=== PATIENT | female | born 1950 | race Caucasian/White ===

== ENCOUNTER 2018-10-12 04:42 | Inpatient (IN) | payer OTHER ==
[2018-10-12 05:05] LABS: ABNORMAL IP MESSAGE 1; ADD MAN DIFF? NO; BASOPHIL # 0.1 10^3/ul (0.0-0.1); BASOPHILS % 0.6 % (0.0-2.0); EOSINOPHILS # 0.2 10^3/ul (0.0-0.5); EOSINOPHILS % 1.5 % (0.0-7.0); HEMATOCRIT 45.9 % (37.0-47.0); HEMOGLOBIN 15.3 g/dl (12.0-16.0); LYMPHOCYTES # 5.7 10^3/ul (0.8-2.9); LYMPHOCYTES % 47.3 % (15.0-51.0); MEAN CORPUSCULAR HEMOGLOBIN 30.1 pg (29.0-33.0); MEAN CORPUSCULAR HGB CONC 33.3 g/dl (32.0-37.0); MEAN CORPUSCULAR VOLUME 90.2 fl (82.0-101.0); MEAN PLATELET VOLUME 10.3 fl (7.4-10.4); MONOCYTE # 0.9 10^3/ul (0.3-0.9); MONOCYTES % 7.7 % (0.0-11.0); NEUTROPHIL # 5.2 10^3/ul (1.6-7.5); NEUTROPHILS % 42.5 % (39.0-77.0); PLATELET COUNT 255 10^3/UL (140-415); RED BLOOD COUNT 5.09 10^6/ul (4.20-5.40); RED CELL DISTRIBUTION WIDTH 13.1 % (11.5-14.5)
[2018-10-12 05:05] LABS: WHITE BLOOD COUNT 12.1 10^3/ul (4.8-10.8)
[2018-10-12] MEDS ORDERED: AMIODARONE 150 MG INJ (05:11)
[2018-10-12 05:12] LABS: POSITIVE DIFF @See below
[2018-10-12] MEDS: AMIODARONE 200 ML IV (05:17)
[2018-10-12] MEDS ORDERED: ONDANSETRON 4 MG INJ (05:19)
[2018-10-12] MEDS: HEPARIN 1000 UNITS/ML 10 ML INJ IV (05:20)
[2018-10-12 05:22] LABS: ANION GAP 11 (5-13); BLOOD UREA NITROGEN 20 mg/dl (7-20); CALCIUM 9.8 mg/dl (8.4-10.2); CARBON DIOXIDE 26 mmol/L (21-31); CHLORIDE 106 mmol/L (97-110); CREATININE 0.78 mg/dl (0.44-1.00); Estimated GFR > 60 mL/min (>60); GLUCOSE 186 mg/dl (70-220); POTASSIUM 3.9 mmol/L (3.5-5.1); SODIUM 143 mmol/L (135-144)
[2018-10-12 05:26] LABS: INR 0.92; PROTIME 12.5 Sec (11.9-14.9)
[2018-10-12 05:27] LABS: PARTIAL THROMBOPLASTIN TIME 25.5 Sec (23.0-35.0)
[2018-10-12] MEDS ORDERED: SODIUM CHLORIDE 0.9% 50 ML BAG (05:30)
[2018-10-12] MEDS ORDERED: ASPIRIN 81 MG TAB (05:30)
[2018-10-12] MEDS ORDERED: HEPARIN 5,000 UNIT/1 ML VIAL (05:30)
[2018-10-12 05:34] LABS: TROPONIN-I 0.048 ng/ml (0.000-0.120)
[2018-10-12] MEDS ORDERED: LIDOCAINE 1% (MDV) 20 ML INJ (05:49)
[2018-10-12] MEDS ORDERED: IODIXANOL LOCM 100 ML BTL (05:49)
[2018-10-12] MEDS ORDERED: MIDAZOLAM 1 MG/ML 2 ML INJ (05:49)
[2018-10-12] MEDS ORDERED: FENTAnyl 50 MCG/ML VIAL (05:49)
[2018-10-12] MEDS ORDERED: IOHEXOL 350MG/ML 50 ML BTL (05:49)
[2018-10-12] MEDS ORDERED: SOD CHLORIDE 0.9% 500 ML (06:31)
[2018-10-12] MEDS ORDERED: FUROSEMIDE 40 MG INJ (06:31)
[2018-10-12] MEDS ORDERED: ROCURONIUM 50 MG INJ (06:52)
[2018-10-12] MEDS ORDERED: ETOMIDATE 20 MG INJ (06:52)
[2018-10-12] MEDS ORDERED: EPTIFIBATIDE 100 ML IV (06:53)
[2018-10-12] MEDS ORDERED: DOPamine-D5W 1.6 MG/ML 250 ML (06:53)
[2018-10-12] MEDS ORDERED: EPTIFIBATIDE 10 ML ×2 (06:53→08:19)
[2018-10-12] MEDS ORDERED: morphine 4 MG/ML VIAL (07:54)
[2018-10-12] MEDS: PROPOFOL 100 ML IV ×2 (08:08→20:00)
[2018-10-12] MEDS: morphine 4 MG/ML VIAL IV (08:09)
[2018-10-12] MEDS ORDERED: CANGRELOR TETRASODIUM/ NS 250 50 MG (08:19)
[2018-10-12] MEDS: TICAGRELOR 90 MG TABLET PO ×2 (08:55→21:29)
[2018-10-12] MEDS: NORepinephrine 8MG/250 ML (PMX 250 ML IV ×3 (08:58→16:12)
[2018-10-12] MEDS: EPTIFIBATIDE 100 ML IV (09:20)
[2018-10-12] MEDS ORDERED: NORepinephrine 8MG/250 ML (PMX 250 ML IV (10:00)
[2018-10-12] MEDS: DOPamine-D5W 1.6 MG/ML 250 ML IV ×2 (10:11→14:07)
[2018-10-12 11:12] LABS: ADD MAN DIFF? NO
[2018-10-12] MEDS ORDERED: AMIODARONE 200 ML IV (11:15)
[2018-10-12 11:18] LABS: WHITE BLOOD COUNT 18.3 10^3/ul (4.8-10.8)
[2018-10-12 11:18] LABS: ABNORMAL IP MESSAGE 1; BASOPHIL # 0.1 10^3/ul (0.0-0.1); BASOPHILS % 0.3 % (0.0-2.0); HEMOGLOBIN 14.7 g/dl (12.0-16.0); LYMPHOCYTES # 1.3 10^3/ul (0.8-2.9); LYMPHOCYTES % 6.9 % (15.0-51.0); MEAN CORPUSCULAR HEMOGLOBIN 29.3 pg (29.0-33.0); MEAN CORPUSCULAR VOLUME 91.8 fl (82.0-101.0); MEAN PLATELET VOLUME 10.6 fl (7.4-10.4); MONOCYTE # 1.8 10^3/ul (0.3-0.9); MONOCYTES % 9.8 % (0.0-11.0); PLATELET COUNT 287 10^3/UL (140-415); RED BLOOD COUNT 5.01 10^6/ul (4.20-5.40); RED CELL DISTRIBUTION WIDTH 13.2 % (11.5-14.5)
[2018-10-12 11:19] LABS: POSITIVE DIFF @See below
[2018-10-12 11:46] LABS: CREATINE KINASE 2797 IU/L (23-200)
[2018-10-12 11:49] LABS: CK INDEX 9.9
[2018-10-12] MEDS: PIPER-TAZO 3.375 GM IV (PMX) 100 ML IVPB ×3 (12:16→23:47)
[2018-10-12 13:51] LABS: AADO2 Arterial 303.6 mmHg (7.0-24.0); Arterial Base Excess -7.3 mmol/L (-3.0-3); Arterial Blood Gas Oxygen Sat 93.9 mmHG (95.0-98.0); Arterial COHb 0.3 % (0.0-3.0); Arterial Fraction of Oxyhgb 93.2 % (93.0-99.0); Arterial HCO3 19.6 mmol/L (22.0-26.0); Arterial MetHb 0.4 % (0.0-1.5); Arterial pCO2 44.2 mmhg (35-45); MODE VENT - AC; Site A-Line
[2018-10-12 14:15] LABS: ANION GAP 9 (5-13); BLOOD UREA NITROGEN 20 mg/dl (7-20); CALCIUM 8.8 mg/dl (8.4-10.2); CARBON DIOXIDE 22 mmol/L (21-31); CHLORIDE 109 mmol/L (97-110); CREATININE 0.79 mg/dl (0.44-1.00); Estimated GFR > 60 mL/min (>60); GLUCOSE 248 mg/dl (70-220); MAGNESIUM 1.8 mg/dl (1.7-2.5); POTASSIUM 3.6 mmol/L (3.5-5.1); SODIUM 140 mmol/L (135-144)
[2018-10-12] MEDS: SODIUM BICARBONATE (IV ADD) 100 MEQ in DEXTROSE 5%-0.45% NACL 1,000 ML IV (14:38)
[2018-10-12] MEDS: MAGNESIUM SULFATE 2 GM/50 ML 50 ML IVPB (16:30)
[2018-10-12] MEDS: POTASSIUM CHLORIDE 100 ML IVPB (16:38)
[2018-10-12 18:18] LABS: CK INDEX 8.5; CREATINE KINASE 4666 IU/L (23-200)
[2018-10-12 18:37] LABS: Arterial MetHb 0.4 % (0.0-1.5)
[2018-10-12 19:08] LABS: AADO2 Arterial 72.7 mmHg (7.0-24.0); Allen Test ACCEPTAB; Arterial Base Excess -5.6 mmol/L (-3.0-3); Arterial Blood Gas Oxygen Sat 99.4 mmHG (95.0-98.0); Arterial COHb 0.3 % (0.0-3.0); Arterial Fraction of Oxyhgb 98.7 % (93.0-99.0); Arterial HCO3 19.2 mmol/L (22.0-26.0); Arterial pCO2 35.8 mmhg (35-45); MODE TRACH COLLAR; Site Right Radial
[2018-10-12] MEDS ORDERED: ACETAMINOPHEN 650MG/20.3ML CUP NGT (19:30)
[2018-10-12 19:41] LABS: ADD MAN DIFF? NO
[2018-10-12 19:42] LABS: ABNORMAL IP MESSAGE 1; BASOPHIL # 0.1 10^3/ul (0.0-0.1); BASOPHILS % 0.2 % (0.0-2.0); HEMATOCRIT 42.4 % (37.0-47.0); HEMOGLOBIN 14.1 g/dl (12.0-16.0); LYMPHOCYTES # 1.4 10^3/ul (0.8-2.9); LYMPHOCYTES % 6.6 % (15.0-51.0); MEAN CORPUSCULAR HEMOGLOBIN 29.8 pg (29.0-33.0); MEAN CORPUSCULAR HGB CONC 33.3 g/dl (32.0-37.0); MEAN CORPUSCULAR VOLUME 89.6 fl (82.0-101.0); MEAN PLATELET VOLUME 10.1 fl (7.4-10.4); MONOCYTE # 1.5 10^3/ul (0.3-0.9); MONOCYTES % 7.3 % (0.0-11.0); NEUTROPHIL # 17.8 10^3/ul (1.6-7.5); NEUTROPHILS % 85.2 % (39.0-77.0); PLATELET COUNT 248 10^3/UL (140-415); RED BLOOD COUNT 4.73 10^6/ul (4.20-5.40); RED CELL DISTRIBUTION WIDTH 12.9 % (11.5-14.5)
[2018-10-12 19:44] LABS: POSITIVE DIFF @See below
[2018-10-12] MEDS: MIDAZOLAM (DRIP) 50 mg/50 mL 50 ML IV (20:20)
[2018-10-12] MEDS: FENTAnyl (DRIP) 1000 mcg/100mL 100 ML IV (20:21)
[2018-10-12] MEDS: ATORVASTATIN 80 MG TAB PO (21:26)
[2018-10-12] MEDS: LACTULOSE 30ML CUP NGT (21:30)
[2018-10-13] MEDS: SODIUM BICARBONATE (IV ADD) 100 MEQ in DEXTROSE 5%-0.45% NACL 1,000 ML IV (01:06)
[2018-10-13] MEDS: MIDAZOLAM (DRIP) 50 mg/50 mL 50 ML IV ×2 (04:55→20:34)
[2018-10-13 04:59] LABS: ADD MAN DIFF? NO
[2018-10-13 05:13] LABS: WHITE BLOOD COUNT 16.6 10^3/ul (4.8-10.8)
[2018-10-13 05:13] LABS: BASOPHILS % 0.2 % (0.0-2.0); HEMATOCRIT 38.9 % (37.0-47.0); HEMOGLOBIN 12.9 g/dl (12.0-16.0); LYMPHOCYTES # 1.7 10^3/ul (0.8-2.9); LYMPHOCYTES % 10.5 % (15.0-51.0); MEAN CORPUSCULAR HEMOGLOBIN 29.9 pg (29.0-33.0); MEAN CORPUSCULAR HGB CONC 33.2 g/dl (32.0-37.0); MEAN CORPUSCULAR VOLUME 90.3 fl (82.0-101.0); MEAN PLATELET VOLUME 10.7 fl (7.4-10.4); MONOCYTE # 1.3 10^3/ul (0.3-0.9); MONOCYTES % 7.6 % (0.0-11.0); NEUTROPHIL # 13.4 10^3/ul (1.6-7.5); PLATELET COUNT 221 10^3/UL (140-415); RED BLOOD COUNT 4.31 10^6/ul (4.20-5.40); RED CELL DISTRIBUTION WIDTH 13.2 % (11.5-14.5)
[2018-10-13] MEDS: PANTOPRAZOLE 40 MG INJ IV (05:28)
[2018-10-13] MEDS: PIPER-TAZO 3.375 GM IV (PMX) 100 ML IVPB ×4 (05:29→23:51)
[2018-10-13 05:40] LABS: LACTIC ACID 2.2 mmol/L (0.5-2.0)
[2018-10-13 05:43] LABS: ANION GAP 7 (5-13); BLOOD UREA NITROGEN 15 mg/dl (7-20); CALCIUM 8.4 mg/dl (8.4-10.2); CARBON DIOXIDE 27 mmol/L (21-31); CHLORIDE 103 mmol/L (97-110); CREATININE 0.75 mg/dl (0.44-1.00); Estimated GFR > 60 mL/min (>60); GLUCOSE 189 mg/dl (70-220); MAGNESIUM 2.2 mg/dl (1.7-2.5); PHOSPHORUS 3.6 mg/dl (2.5-4.9); SODIUM 137 mmol/L (135-144)
[2018-10-13] MEDS: PROPOFOL 100 ML IV ×2 (08:00→20:00)
[2018-10-13] MEDS: TICAGRELOR 90 MG TABLET PO (09:00)
[2018-10-13 09:17] LABS: AADO2 Arterial 150.2 mmHg (7.0-24.0); Arterial Base Excess 1.5 mmol/L (-3.0-3); Arterial Blood Gas Oxygen Sat 98.4 mmHG (95.0-98.0); Arterial COHb 0.2 % (0.0-3.0); Arterial Fraction of Oxyhgb 97.9 % (93.0-99.0); Arterial HCO3 25.9 mmol/L (22.0-26.0); Arterial MetHb 0.3 % (0.0-1.5); Arterial pCO2 40.1 mmhg (35-45); MODE VENT - AC; Site A-Line
[2018-10-13] MEDS: ASPIRIN 81 MG TAB NGT (09:21)
[2018-10-13] MEDS: EPTIFIBATIDE 100 ML IV (12:09)
[2018-10-13] MEDS: morphine 2 MG INJ IV (20:01)
[2018-10-13] MEDS: ATORVASTATIN 80 MG TAB PO (20:54)
[2018-10-14 05:03] LABS: AADO2 Arterial 113.2 mmHg (7.0-24.0); Arterial Blood Gas Oxygen Sat 98.5 mmHG (95.0-98.0); Arterial COHb 0.3 % (0.0-3.0); Arterial Fraction of Oxyhgb 97.9 % (93.0-99.0); Arterial HCO3 16.3 mmol/L (22.0-26.0); Arterial MetHb 0.3 % (0.0-1.5); Arterial pCO2 22.9 mmhg (35-45); MODE VENT - AC; Site A-Line
[2018-10-14] MEDS: EPTIFIBATIDE 100 ML IV ×2 (05:15→16:07)
[2018-10-14 05:16] LABS: ADD MAN DIFF? NO
[2018-10-14 05:28] LABS: BASOPHIL # 0.1 10^3/ul (0.0-0.1); BASOPHILS % 0.4 % (0.0-2.0); EOSINOPHILS % 0.2 % (0.0-7.0); HEMATOCRIT 34.4 % (37.0-47.0); HEMOGLOBIN 11.2 g/dl (12.0-16.0); LYMPHOCYTES # 2.1 10^3/ul (0.8-2.9); LYMPHOCYTES % 18.4 % (15.0-51.0); MEAN CORPUSCULAR HEMOGLOBIN 29.7 pg (29.0-33.0); MEAN CORPUSCULAR HGB CONC 32.6 g/dl (32.0-37.0); MEAN CORPUSCULAR VOLUME 91.2 fl (82.0-101.0); MEAN PLATELET VOLUME 11.3 fl (7.4-10.4); MONOCYTE # 1.1 10^3/ul (0.3-0.9); NEUTROPHIL # 7.9 10^3/ul (1.6-7.5); NEUTROPHILS % 70.6 % (39.0-77.0); PLATELET COUNT 159 10^3/UL (140-415); RED BLOOD COUNT 3.77 10^6/ul (4.20-5.40); RED CELL DISTRIBUTION WIDTH 13.5 % (11.5-14.5)
[2018-10-14 05:28] LABS: WHITE BLOOD COUNT 11.2 10^3/ul (4.8-10.8)
[2018-10-14] MEDS: PANTOPRAZOLE 40 MG INJ IV (05:34)
[2018-10-14] MEDS: PIPER-TAZO 3.375 GM IV (PMX) 100 ML IVPB ×4 (05:34→23:39)
[2018-10-14 05:58] LABS: LACTIC ACID 1.2 mmol/L (0.5-2.0)
[2018-10-14 06:02] LABS: INR 1.17; PT RATIO 1.2
[2018-10-14 06:17] LABS: PHOSPHORUS 2.4 mg/dl (2.5-4.9)
[2018-10-14 06:17] LABS: MAGNESIUM 2.1 mg/dl (1.7-2.5)
[2018-10-14 06:20] LABS: ANION GAP 7 (5-13); BLOOD UREA NITROGEN 12 mg/dl (7-20); CALCIUM 8.2 mg/dl (8.4-10.2); CARBON DIOXIDE 27 mmol/L (21-31); CHLORIDE 106 mmol/L (97-110); Estimated GFR > 60 mL/min (>60); GLUCOSE 108 mg/dl (70-220); POTASSIUM 3.4 mmol/L (3.5-5.1); SODIUM 140 mmol/L (135-144)
[2018-10-14] MEDS: PROPOFOL 100 ML IV ×3 (08:00→22:52)
[2018-10-14] MEDS: ASPIRIN 81 MG TAB NGT (08:54)
[2018-10-14] MEDS: POTASSIUM CHLORIDE 20 MEQ POWDER FOR ORAL SOLN NGT (08:55)
[2018-10-14] MEDS: morphine 2 MG INJ IV (09:39)
[2018-10-14] MEDS: POTASSIUM PHOSPHATE 15 MM in SOD CHLORIDE 0.9% 250 ML IVPB (10:29)
[2018-10-14] MEDS: MIDAZOLAM (DRIP) 50 mg/50 mL 50 ML IV (10:30)
[2018-10-14] MEDS: FENTAnyl (DRIP) 1000 mcg/100mL 100 ML IV ×2 (10:42→23:00)
[2018-10-14] MEDS: CEFAZOLIN 2 GM/50 ML (PMX) 50 ML IVPB (11:00)
[2018-10-14] MEDS: ATORVASTATIN 80 MG TAB PO (20:48)
[2018-10-15] MEDS: morphine 2 MG INJ IV ×2 (01:13→20:38)
[2018-10-15 05:20] LABS: ADD MAN DIFF? NO
[2018-10-15] MEDS: PANTOPRAZOLE 40 MG INJ IV (05:30)
[2018-10-15] MEDS: PIPER-TAZO 3.375 GM IV (PMX) 100 ML IVPB ×2 (05:30→12:08)
[2018-10-15 05:31] LABS: WHITE BLOOD COUNT 9.6 10^3/ul (4.8-10.8)
[2018-10-15 05:31] LABS: BASOPHILS % 0.4 % (0.0-2.0); EOSINOPHILS # 0.1 10^3/ul (0.0-0.5); EOSINOPHILS % 0.8 % (0.0-7.0); HEMATOCRIT 33.7 % (37.0-47.0); LYMPHOCYTES # 1.4 10^3/ul (0.8-2.9); LYMPHOCYTES % 14.3 % (15.0-51.0); MEAN CORPUSCULAR HGB CONC 32.6 g/dl (32.0-37.0); MEAN CORPUSCULAR VOLUME 91.8 fl (82.0-101.0); MEAN PLATELET VOLUME 11.1 fl (7.4-10.4); MONOCYTE # 0.8 10^3/ul (0.3-0.9); MONOCYTES % 7.8 % (0.0-11.0); NEUTROPHIL # 7.3 10^3/ul (1.6-7.5); NEUTROPHILS % 76.2 % (39.0-77.0); PLATELET COUNT 150 10^3/UL (140-415); RED BLOOD COUNT 3.67 10^6/ul (4.20-5.40); RED CELL DISTRIBUTION WIDTH 13.9 % (11.5-14.5)
[2018-10-15 05:35] LABS: AADO2 Arterial 109.1 mmHg (7.0-24.0); Allen Test ACCEPTAB; Arterial Base Excess -3.1 mmol/L (-3.0-3); Arterial Blood Gas Oxygen Sat 97.1 mmHG (95.0-98.0); Arterial COHb 0.1 % (0.0-3.0); Arterial Fraction of Oxyhgb 96.8 % (93.0-99.0); Arterial HCO3 21.9 mmol/L (22.0-26.0); Arterial MetHb 0.2 % (0.0-1.5); Arterial pCO2 39.1 mmhg (35-45); MODE VENT - AC
[2018-10-15 05:55] LABS: LACTIC ACID 0.9 mmol/L (0.5-2.0)
[2018-10-15 05:56] LABS: ANION GAP 4 (5-13); BLOOD UREA NITROGEN 11 mg/dl (7-20); CALCIUM 8.4 mg/dl (8.4-10.2); CARBON DIOXIDE 25 mmol/L (21-31); CHLORIDE 110 mmol/L (97-110); CREATININE 0.63 mg/dl (0.44-1.00); Estimated GFR > 60 mL/min (>60); GLUCOSE 86 mg/dl (70-220); POTASSIUM 3.8 mmol/L (3.5-5.1); SODIUM 139 mmol/L (135-144)
[2018-10-15] MEDS: ASPIRIN 81 MG TAB NGT (09:28)
[2018-10-15] MEDS: PROPOFOL 100 ML IV ×2 (10:38→20:12)
[2018-10-15] MEDS: EPINEPHrine 4 MG in DEXTROSE 5% 246 ML IV ×2 (12:00→22:00)
[2018-10-15] MEDS: HEPARIN (10000 UNITS/ML) 10,000 UNIT, MILRINONE LACTATE 10 MG in SOD CHLORIDE 0.9% 1,00... SC ×2 (12:00→22:00)
[2018-10-15] MEDS: MILRINONE LACTATE 2 MG in SOD CHLORIDE 0.9% 50 ML IV (12:00)
[2018-10-15] MEDS: PHENYLephrine 20MG IN 250 ML 250 ML IV ×3 (12:00→22:00)
[2018-10-15] MEDS: INSULIN HUMAN REGULAR 100 UNIT in SOD CHLORIDE 0.9% 99 ML IVPB ×2 (12:00→22:00)
[2018-10-15] MEDS: ASPIRIN 600 MG SUPP PR ×2 (12:00→22:00)
[2018-10-15] MEDS: NORepinephrine 8MG/250 ML (PMX 250 ML IV ×2 (12:00→22:00)
[2018-10-15] MEDS: CEFAZOLIN 2 GM/50 ML (PMX) 50 ML IVPB (14:00)
[2018-10-15] MEDS ORDERED: ROCURONIUM 50 MG INJ (14:55)
[2018-10-15] MEDS ORDERED: ALBUMIN HUMAN 25% 100 ML INJ (14:55)
[2018-10-15] MEDS ORDERED: AMINOCAPROIC ACID 5 GM INJ (14:55)
[2018-10-15] MEDS ORDERED: HEPARIN 1000 UNITS/ML 10 ML INJ ×2 (14:55→14:59)
[2018-10-15] MEDS ORDERED: MIDAZOLAM 1 MG/ML 5 ML INJ (14:55)
[2018-10-15] MEDS ORDERED: PROTAMINE 250 MG INJ (14:55)
[2018-10-15] MEDS ORDERED: LIDOCAINE 2% (SDV) 5 ML INJ (14:55)
[2018-10-15] MEDS ORDERED: CA CHLORIDE 10% 10 ML SYRINGE (14:55)
[2018-10-15] MEDS ORDERED: NA BICARBONATE 8.4% 50 ML SYG (14:55)
[2018-10-15] MEDS ORDERED: PHENYLephrine (100 MCG/ML) 5ML SYG (14:55)
[2018-10-15] MEDS ORDERED: POTASSIUM CHLORIDE 40 MEQ INJ (14:55)
[2018-10-15] MEDS ORDERED: MAGNESIUM SULFATE (MG) 50% 10 ML INJ (14:55)
[2018-10-15] MEDS ORDERED: ETOMIDATE 20 MG INJ (14:55)
[2018-10-15] MEDS ORDERED: FENTAnyl 250MCG INJ (14:55)
[2018-10-15] MEDS ORDERED: CEFAZOLIN 1 GM INJ (14:55)
[2018-10-15] MEDS ORDERED: MANNITOL 20% 500 ML BAG (14:55)
[2018-10-15] MEDS ORDERED: VANCOMYCIN 1 GM INJ (14:59)
[2018-10-15] MEDS ORDERED: PAPAVERINE 60 MG INJ (14:59)
[2018-10-15] MEDS ORDERED: DOPamine-D5W 1.6 MG/ML 250 ML (15:00)
[2018-10-15] MEDS ORDERED: NITROGLYCERIN 50 MG/D5W 250 ML BTL (15:00)
[2018-10-15] MEDS: PAPAVERINE 60 MG INJ INJ (15:17)
[2018-10-15] MEDS: HEPARIN 1000 UNITS/ML 10 ML INJ IRR (15:17)
[2018-10-15] MEDS: VANCOMYCIN 1 GM INJ IRR (15:17)
[2018-10-15] MEDS ORDERED: NORepinephrine 8MG/250 ML (PMX 250 ML IV (19:00)
[2018-10-15] MEDS ORDERED: DEXTROSE 50% 50 ML SYRINGE IV ×2 (19:00)
[2018-10-15] MEDS ORDERED: DOPamine-D5W 1.6 MG/ML 250 ML IV ×2 (19:00→20:00)
[2018-10-15] MEDS: FACTOR VIIA 1 MG VIAL IV (19:00)
[2018-10-15] MEDS ORDERED: OXYCODONE/ACETAMINOPHEN (5/325) TAB PO (19:00)
[2018-10-15] MEDS: ACCU-CHEK XX ×5 (19:00→23:00)
[2018-10-15 19:31] LABS: IMMEDIATE SPIN CROSSMATCH 1
[2018-10-15] MEDS ORDERED: POTASSIUM CHLORIDE 50 ML (19:34)
[2018-10-15] MEDS ORDERED: MAGNESIUM SULFATE 2 GM/50 ML 50 ML (19:36)
[2018-10-15] MEDS ORDERED: morphine 2 MG INJ IV (20:00)
[2018-10-15] MEDS ORDERED: MIDAZOLAM 1 MG/ML 2 ML INJ IV (20:00)
[2018-10-15] MEDS: POTASSIUM CHLORIDE 50 ML IVPB (20:00)
[2018-10-15] MEDS ORDERED: EPHEDrine SULFATE 50 MG/5 ML SYG IV (20:00)
[2018-10-15] MEDS ORDERED: LORAZEPAM 2 MG INJ IV (20:00)
[2018-10-15] MEDS ORDERED: ONDANSETRON 4 MG INJ IV (20:00)
[2018-10-15] MEDS ORDERED: DIPHENHYDRAMINE 50 MG INJ IV (20:00)
[2018-10-15] MEDS ORDERED: PHENYLephrine 20MG IN 250 ML 250 ML IV (20:00)
[2018-10-15] MEDS ORDERED: NITROGLYCERIN 50 MG/D5W (PMX) 250 ML IV (20:00)
[2018-10-15] MEDS: MAGNESIUM SULFATE 2 GM/50 ML 50 ML IVPB (20:13)
[2018-10-15 20:39] LABS: ADD MAN DIFF? NO
[2018-10-15 20:41] LABS: WHITE BLOOD COUNT 17.1 10^3/ul (4.8-10.8)
[2018-10-15 20:41] LABS: ABNORMAL IP MESSAGE 1; BASOPHIL # 0.1 10^3/ul (0.0-0.1); BASOPHILS % 0.4 % (0.0-2.0); EOSINOPHILS # 0.1 10^3/ul (0.0-0.5); EOSINOPHILS % 0.6 % (0.0-7.0); HEMATOCRIT 21.7 % (37.0-47.0); HEMOGLOBIN 7.2 g/dl (12.0-16.0); LYMPHOCYTES # 2.7 10^3/ul (0.8-2.9); LYMPHOCYTES % 15.9 % (15.0-51.0); MEAN CORPUSCULAR HGB CONC 33.2 g/dl (32.0-37.0); MEAN CORPUSCULAR VOLUME 93.5 fl (82.0-101.0); MEAN PLATELET VOLUME 9.8 fl (7.4-10.4); MONOCYTE # 1.8 10^3/ul (0.3-0.9); MONOCYTES % 10.7 % (0.0-11.0); NEUTROPHIL # 11.9 10^3/ul (1.6-7.5); NEUTROPHILS % 69.5 % (39.0-77.0); NUCLEATED RED BLOOD CELLS% 0.1 /100WBC (0.0-0.0); PLATELET COUNT 114 10^3/UL (140-415); RED BLOOD COUNT 2.32 10^6/ul (4.20-5.40); RED CELL DISTRIBUTION WIDTH 13.3 % (11.5-14.5)
[2018-10-15 20:43] LABS: POSITIVE DIFF @See below
[2018-10-15 20:44] LABS: AADO2 Arterial 522.2 mmHg (7.0-24.0); Arterial Blood Gas Oxygen Sat 98.1 mmHG (95.0-98.0); Arterial COHb 0.3 % (0.0-3.0); Arterial Fraction of Oxyhgb 97.3 % (93.0-99.0); Arterial HCO3 23.9 mmol/L (22.0-26.0); Arterial MetHb 0.5 % (0.0-1.5); Arterial pCO2 40.7 mmhg (35-45); MODE VENT - AC; Site A-Line
[2018-10-15 20:59] LABS: INR 0.89; PROTIME 12.2 Sec (11.9-14.9)
[2018-10-15 21:00] LABS: PARTIAL THROMBOPLASTIN TIME 26.9 Sec (23.0-35.0)
[2018-10-15] MEDS: SOD CHLORIDE 0.9% 1,000 ML IV ×2 (21:00→22:00)
[2018-10-15] MEDS: ENOXAPARIN 40 MG/0.4 ML SYG SC (21:00)
[2018-10-15 21:06] LABS: ANION GAP 8 (5-13); BLOOD UREA NITROGEN 12 mg/dl (7-20); CARBON DIOXIDE 25 mmol/L (21-31); CHLORIDE 109 mmol/L (97-110); CREATININE 0.74 mg/dl (0.44-1.00); Estimated GFR > 60 mL/min (>60); GLUCOSE 156 mg/dl (70-220); MAGNESIUM 3.2 mg/dl (1.7-2.5); POTASSIUM 3.9 mmol/L (3.5-5.1); SODIUM 142 mmol/L (135-144)
[2018-10-15 21:08] LABS: MODE VENT - AC; MetHgb Mixed Venous 0.5 %; Mixed Venous Base Excess -0.9 mmol/L; Mixed Venous COHb 0.3 %; Mixed Venous Fraction OxyHgb 47.4 %; Mixed Venous Oxygen Sat 47.8 mmHG (65.0-75.0); Mixed Venous Total Hemglobin 8.5 g/dl; Sample Type Blood venous; Site VENOUS LINE
[2018-10-15] MEDS ORDERED: ALBUMIN HUMAN 5% 250 ML (21:15)
[2018-10-15 21:21] LABS: TYPE AND SCREEN 1
[2018-10-15] MEDS: ALBUMIN HUMAN 5% 250 ML IV ×2 (21:30→22:36)
[2018-10-15 21:40] LABS: PLATELET COUNT 116 10^3/UL (140-415)
[2018-10-15] MEDS ORDERED: FENTAnyl 50 MCG/ML VIAL (21:44)
[2018-10-15 21:59] LABS: ALBUMIN 2.7 g/dl (3.3-4.9)
[2018-10-15 21:59] LABS: INR 0.94; PROTIME 12.7 Sec (11.9-14.9)
[2018-10-15 22:00] LABS: PARTIAL THROMBOPLASTIN TIME 27.5 Sec (23.0-35.0)
[2018-10-15 22:04] LABS: THROMBIN TIME 15.3 SEC (13.8-19.1)
[2018-10-15 22:11] LABS: FIBRIN SPLIT PRODUCT >40 and <80 ug/ml (<10)
[2018-10-15 22:30] LABS: D-DIMER 6811.16 ng/ml (<460); IMMEDIATE SPIN CROSSMATCH 1
[2018-10-15 22:30] LABS: IMMEDIATE SPIN CROSSMATCH 1 7
[2018-10-16] MEDS: PROPOFOL 100 ML IV ×2 (00:30→10:49)
[2018-10-16] MEDS ORDERED: NORepinephrine 8MG/250 ML (PMX 250 ML IV (00:30)
[2018-10-16 00:48] LABS: INR 1.14; PROTIME 14.7 Sec (11.9-14.9); PT RATIO 1.1
[2018-10-16 00:49] LABS: PARTIAL THROMBOPLASTIN TIME 28.1 Sec (23.0-35.0)
[2018-10-16 00:50] LABS: ADD MAN DIFF? NO
[2018-10-16 00:52] LABS: ANION GAP 14 (5-13); BLOOD UREA NITROGEN 11 mg/dl (7-20); CALCIUM 7.3 mg/dl (8.4-10.2); CARBON DIOXIDE 19 mmol/L (21-31); CHLORIDE 110 mmol/L (97-110); CREATININE 0.74 mg/dl (0.44-1.00); Estimated GFR > 60 mL/min (>60); GLUCOSE 192 mg/dl (70-220); SODIUM 143 mmol/L (135-144)
[2018-10-16 00:52] LABS: MAGNESIUM 2.5 mg/dl (1.7-2.5)
[2018-10-16 00:54] LABS: ABNORMAL IP MESSAGE 1; BASOPHIL # 0.1 10^3/ul (0.0-0.1); BASOPHILS % 0.5 % (0.0-2.0); EOSINOPHILS % 0.1 % (0.0-7.0); HEMATOCRIT 34.6 % (37.0-47.0); HEMOGLOBIN 11.6 g/dl (12.0-16.0); LYMPHOCYTES # 0.9 10^3/ul (0.8-2.9); LYMPHOCYTES % 5.4 % (15.0-51.0); MEAN CORPUSCULAR HEMOGLOBIN 28.2 pg (29.0-33.0); MEAN CORPUSCULAR HGB CONC 33.5 g/dl (32.0-37.0); MEAN PLATELET VOLUME 10.2 fl (7.4-10.4); MONOCYTE # 1.6 10^3/ul (0.3-0.9); MONOCYTES % 9.9 % (0.0-11.0); NEUTROPHIL # 13.4 10^3/ul (1.6-7.5); NUCLEATED RED BLOOD CELLS% 0.1 /100WBC (0.0-0.0); PLATELET COUNT 92 10^3/UL (140-415); RED BLOOD COUNT 4.12 10^6/ul (4.20-5.40); RED CELL DISTRIBUTION WIDTH 18.6 % (11.5-14.5)
[2018-10-16 00:54] LABS: WHITE BLOOD COUNT 16.5 10^3/ul (4.8-10.8)
[2018-10-16] MEDS: ACCU-CHEK XX ×24 (01:00→22:59)
[2018-10-16 01:01] LABS: POSITIVE DIFF @See below
[2018-10-16 01:07] LABS: AADO2 Arterial 600.6 mmHg (7.0-24.0); Arterial Base Excess -7.1 mmol/L (-3.0-3); Arterial COHb 0.3 % (0.0-3.0); Arterial Fraction of Oxyhgb 91.4 % (93.0-99.0); Arterial HCO3 19.7 mmol/L (22.0-26.0); Arterial MetHb 0.3 % (0.0-1.5); Arterial pCO2 44.5 mmhg (35-45); MODE VENT - AC; Site A-Line
[2018-10-16 01:09] LABS: MODE VENT - AC; MetHgb Mixed Venous 0.4 %; Mixed Venous COHb 0.3 %; Mixed Venous Fraction OxyHgb 86.4 %; Mixed Venous Total Hemglobin 12.4 g/dl; Sample Type Blood venous; Site VENOUS LINE
[2018-10-16] MEDS ORDERED: NA BICARBONATE 8.4% 50 ML SYG (01:37)
[2018-10-16] MEDS: PANTOPRAZOLE IV 80 MG in SOD CHLORIDE 0.9% 100 ML IV (01:44)
[2018-10-16] MEDS: POTASSIUM CHLORIDE 40 MEQ, CALCIUM CHLORIDE 10% 1 GM in DEXTROSE 5%-0.225% NACL 1,000 ML IV ×2 (01:44→11:53)
[2018-10-16] MEDS: NA BICARBONATE 8.4% 50 ML SYG IV (01:44)
[2018-10-16] MEDS: NITROGLYCERIN 50 MG/D5W (PMX) 250 ML IV (01:55)
[2018-10-16] MEDS: MILRINONE LACTATE 2 MG in SOD CHLORIDE 0.9% 50 ML IV (01:55)
[2018-10-16] MEDS: CEFAZOLIN 1 GM/50 ML (PMX) 50 ML IVPB ×3 (02:02→18:51)
[2018-10-16] MEDS: FAMOTIDINE 20 MG INJ IV ×3 (02:02→19:47)
[2018-10-16] MEDS: POTASSIUM CHLORIDE 50 ML IVPB ×5 (02:25→21:14)
[2018-10-16] MEDS ORDERED: DEXTROSE 50% 50 ML SYRINGE IV ×2 (03:00)
[2018-10-16] MEDS: MILRINONE LACTATE 100 ML IV ×2 (03:05→11:09)
[2018-10-16] MEDS: INSULIN HUMAN REGULAR 100 UNIT in SOD CHLORIDE 0.9% 99 ML IV ×2 (03:30→18:13)
[2018-10-16] MEDS: EPINEPHrine 4 MG in SOD CHLORIDE 0.9% 246 ML IV (04:27)
[2018-10-16 05:18] LABS: ADD MAN DIFF? NO
[2018-10-16 05:23] LABS: ABNORMAL IP MESSAGE 1; BASOPHIL # 0.1 10^3/ul (0.0-0.1); BASOPHILS % 0.5 % (0.0-2.0); EOSINOPHILS % 0.1 % (0.0-7.0); HEMATOCRIT 30.8 % (37.0-47.0); HEMOGLOBIN 10.5 g/dl (12.0-16.0); LYMPHOCYTES # 0.7 10^3/ul (0.8-2.9); LYMPHOCYTES % 6.1 % (15.0-51.0); MEAN CORPUSCULAR HEMOGLOBIN 28.1 pg (29.0-33.0); MEAN CORPUSCULAR HGB CONC 34.1 g/dl (32.0-37.0); MEAN CORPUSCULAR VOLUME 82.4 fl (82.0-101.0); MEAN PLATELET VOLUME 10.9 fl (7.4-10.4); MONOCYTE # 1.3 10^3/ul (0.3-0.9); MONOCYTES % 10.8 % (0.0-11.0); NEUTROPHIL # 9.4 10^3/ul (1.6-7.5); NEUTROPHILS % 80.4 % (39.0-77.0); PLATELET COUNT 94 10^3/UL (140-415); RED BLOOD COUNT 3.74 10^6/ul (4.20-5.40); RED CELL DISTRIBUTION WIDTH 18.5 % (11.5-14.5)
[2018-10-16 05:23] LABS: WHITE BLOOD COUNT 11.7 10^3/ul (4.8-10.8)
[2018-10-16 05:30] LABS: POSITIVE DIFF @See below
[2018-10-16 05:42] LABS: PROTIME 14.3 Sec (11.9-14.9); PT RATIO 1.1
[2018-10-16 05:43] LABS: PARTIAL THROMBOPLASTIN TIME 30.2 Sec (23.0-35.0)
[2018-10-16 05:47] LABS: AADO2 Arterial 568.8 mmHg (7.0-24.0); Arterial Base Excess -1.9 mmol/L (-3.0-3); Arterial Blood Gas Oxygen Sat 97.2 mmHG (95.0-98.0); Arterial COHb 0.3 % (0.0-3.0); Arterial Fraction of Oxyhgb 96.6 % (93.0-99.0); Arterial HCO3 22.8 mmol/L (22.0-26.0); Arterial MetHb 0.3 % (0.0-1.5); Arterial pCO2 38.6 mmhg (35-45); MODE VENT - AC; Site A-Line
[2018-10-16 05:51] LABS: MODE VENT - AC; MetHgb Mixed Venous 0.6 %; Mixed Venous Base Excess -2.1 mmol/L; Mixed Venous COHb 0.2 %; Mixed Venous Fraction OxyHgb 64.7 %; Mixed Venous Oxygen Sat 65.2 mmHG (65.0-75.0); Mixed Venous Total Hemglobin 11.8 g/dl; Sample Type Blood venous; Site A-Line
[2018-10-16] MEDS: PHENYLephrine 20MG IN 250 ML 250 ML IV ×3 (05:54→18:05)
[2018-10-16 05:55] LABS: ANION GAP 9 (5-13); BLOOD UREA NITROGEN 12 mg/dl (7-20); CALCIUM 7.3 mg/dl (8.4-10.2); CARBON DIOXIDE 23 mmol/L (21-31); CHLORIDE 112 mmol/L (97-110); CREATININE 0.67 mg/dl (0.44-1.00); Estimated GFR > 60 mL/min (>60); GLUCOSE 208 mg/dl (70-220); MAGNESIUM 2.5 mg/dl (1.7-2.5); PHOSPHORUS 3.5 mg/dl (2.5-4.9); POTASSIUM 4.2 mmol/L (3.5-5.1); SODIUM 144 mmol/L (135-144)
[2018-10-16] MEDS: HYDROmorphONE 0.5 MG/0.5 ML SYG IV ×2 (07:18→09:48)
[2018-10-16] MEDS: FAMOTIDINE 20 MG TAB PO (08:08)
[2018-10-16] MEDS ORDERED: ASPIRIN 325 MG TAB PO (09:00)
[2018-10-16] MEDS: ASPIRIN 81 MG TAB NGT (09:47)
[2018-10-16] MEDS: FENTAnyl (DRIP) 1000 mcg/100mL 100 ML IV (10:49)
[2018-10-16] MEDS ORDERED: FUROSEMIDE 40 MG INJ (12:34)
[2018-10-16] MEDS: FUROSEMIDE 40 MG INJ IV (12:47)
[2018-10-16 13:36] LABS: ADD MAN DIFF? NO
[2018-10-16 13:40] LABS: BASOPHILS % 0.4 % (0.0-2.0); EOSINOPHILS % 0.1 % (0.0-7.0); HEMATOCRIT 27.4 % (37.0-47.0); HEMOGLOBIN 9.3 g/dl (12.0-16.0); LYMPHOCYTES # 1.1 10^3/ul (0.8-2.9); LYMPHOCYTES % 10.7 % (15.0-51.0); MEAN CORPUSCULAR HEMOGLOBIN 27.9 pg (29.0-33.0); MEAN CORPUSCULAR HGB CONC 33.9 g/dl (32.0-37.0); MEAN CORPUSCULAR VOLUME 82.3 fl (82.0-101.0); MEAN PLATELET VOLUME 10.5 fl (7.4-10.4); MONOCYTE # 1.3 10^3/ul (0.3-0.9); MONOCYTES % 12.6 % (0.0-11.0); NEUTROPHIL # 7.8 10^3/ul (1.6-7.5); NEUTROPHILS % 74.4 % (39.0-77.0); NUCLEATED RED BLOOD CELLS # 0.1 10^3/ul (0.0-0.0); NUCLEATED RED BLOOD CELLS% 0.9 /100WBC (0.0-0.0); PLATELET COUNT 106 10^3/UL (140-415); RED BLOOD COUNT 3.33 10^6/ul (4.20-5.40); RED CELL DISTRIBUTION WIDTH 18.9 % (11.5-14.5)
[2018-10-16 13:40] LABS: WHITE BLOOD COUNT 10.5 10^3/ul (4.8-10.8)
[2018-10-16 14:03] LABS: ANION GAP 8 (5-13); BLOOD UREA NITROGEN 14 mg/dl (7-20); CALCIUM 7.7 mg/dl (8.4-10.2); CARBON DIOXIDE 24 mmol/L (21-31); CHLORIDE 112 mmol/L (97-110); CREATININE 0.86 mg/dl (0.44-1.00); Estimated GFR > 60 mL/min (>60); GLUCOSE 126 mg/dl (70-220); MAGNESIUM 2.4 mg/dl (1.7-2.5); SODIUM 144 mmol/L (135-144)
[2018-10-16] MEDS: CLOPIDOGREL 75 MG TAB PO (14:57)
[2018-10-16] MEDS ORDERED: MIDAZOLAM (DRIP) 50 mg/50 mL 50 ML IV (15:30)
[2018-10-16] MEDS: MIDAZOLAM 50 MG in DEXTROSE 5% 40 ML IV ×2 (15:54→22:47)
[2018-10-16 19:38] LABS: HEMATOCRIT 24.7 % (37.0-47.0)
[2018-10-16 19:50] LABS: ADD MAN DIFF? NO
[2018-10-16 19:51] LABS: ABNORMAL IP MESSAGE 1; BASOPHILS % 0.3 % (0.0-2.0); EOSINOPHILS % 0.1 % (0.0-7.0); HEMOGLOBIN 8.5 g/dl (12.0-16.0); LYMPHOCYTES # 1.3 10^3/ul (0.8-2.9); LYMPHOCYTES % 10.5 % (15.0-51.0); MEAN CORPUSCULAR HEMOGLOBIN 28.2 pg (29.0-33.0); MEAN CORPUSCULAR VOLUME 83.1 fl (82.0-101.0); MEAN PLATELET VOLUME 11.1 fl (7.4-10.4); MONOCYTE # 1.6 10^3/ul (0.3-0.9); MONOCYTES % 13.1 % (0.0-11.0); NEUTROPHIL # 8.9 10^3/ul (1.6-7.5); NEUTROPHILS % 74.2 % (39.0-77.0); NUCLEATED RED BLOOD CELLS # 0.1 10^3/ul (0.0-0.0); PLATELET COUNT 105 10^3/UL (140-415); RED BLOOD COUNT 3.01 10^6/ul (4.20-5.40); RED CELL DISTRIBUTION WIDTH 19.1 % (11.5-14.5)
[2018-10-16 19:52] LABS: POSITIVE DIFF @See below
[2018-10-16 20:09] LABS: ANION GAP 4 (5-13); BLOOD UREA NITROGEN 14 mg/dl (7-20); CALCIUM 7.8 mg/dl (8.4-10.2); CARBON DIOXIDE 24 mmol/L (21-31); CHLORIDE 114 mmol/L (97-110); CREATININE 0.89 mg/dl (0.44-1.00); Estimated GFR > 60 mL/min (>60); GLUCOSE 104 mg/dl (70-220); POTASSIUM 4.3 mmol/L (3.5-5.1); SODIUM 142 mmol/L (135-144)
[2018-10-16 20:47] LABS: MAGNESIUM 2.3 mg/dl (1.7-2.5)
[2018-10-16] MEDS ORDERED: ENOXAPARIN 40 MG/0.4 ML SYG SC (21:00)
[2018-10-16] MEDS: ATORVASTATIN 80 MG TAB NGT (21:13)
[2018-10-16] MEDS: ACETAMINOPHEN 325 MG TAB PO (22:54)
[2018-10-16] MEDS: FUROSEMIDE 20 MG INJ IV (23:53)
[2018-10-17] MEDS: ACCU-CHEK XX ×25 (00:03→23:00)
[2018-10-17] MEDS: PHENYLephrine 20MG IN 250 ML 250 ML IV (01:24)
[2018-10-17] MEDS: HYDROmorphONE 0.5 MG/0.5 ML SYG IV ×3 (02:35→07:03)
[2018-10-17 03:06] LABS: LACTIC ACID 1.2 mmol/L (0.5-2.0)
[2018-10-17] MEDS: POTASSIUM CHLORIDE 40 MEQ, CALCIUM CHLORIDE 10% 1 GM in DEXTROSE 5%-0.225% NACL 1,000 ML IV ×2 (03:28→22:20)
[2018-10-17 05:06] LABS: ADD MAN DIFF? NO
[2018-10-17 05:13] LABS: WHITE BLOOD COUNT 12.5 10^3/ul (4.8-10.8)
[2018-10-17 05:13] LABS: ABNORMAL IP MESSAGE 1; BASOPHILS % 0.2 % (0.0-2.0); EOSINOPHILS # 0.1 10^3/ul (0.0-0.5); EOSINOPHILS % 0.5 % (0.0-7.0); LYMPHOCYTES # 1.6 10^3/ul (0.8-2.9); LYMPHOCYTES % 12.7 % (15.0-51.0); MEAN CORPUSCULAR HEMOGLOBIN 28.2 pg (29.0-33.0); MEAN CORPUSCULAR HGB CONC 33.3 g/dl (32.0-37.0); MEAN CORPUSCULAR VOLUME 84.5 fl (82.0-101.0); MEAN PLATELET VOLUME 10.9 fl (7.4-10.4); MONOCYTE # 1.6 10^3/ul (0.3-0.9); MONOCYTES % 12.4 % (0.0-11.0); NEUTROPHIL # 9.1 10^3/ul (1.6-7.5); NEUTROPHILS % 72.5 % (39.0-77.0); NUCLEATED RED BLOOD CELLS # 0.1 10^3/ul (0.0-0.0); NUCLEATED RED BLOOD CELLS% 0.6 /100WBC (0.0-0.0); PLATELET COUNT 109 10^3/UL (140-415); RED BLOOD COUNT 2.84 10^6/ul (4.20-5.40); RED CELL DISTRIBUTION WIDTH 19.4 % (11.5-14.5)
[2018-10-17 05:30] LABS: ANION GAP 2 (5-13); BLOOD UREA NITROGEN 14 mg/dl (7-20); CARBON DIOXIDE 25 mmol/L (21-31); CHLORIDE 115 mmol/L (97-110); CREATININE 0.86 mg/dl (0.44-1.00); Estimated GFR > 60 mL/min (>60); GLUCOSE 110 mg/dl (70-220); MAGNESIUM 2.4 mg/dl (1.7-2.5); PHOSPHORUS 2.9 mg/dl (2.5-4.9); POTASSIUM 4.2 mmol/L (3.5-5.1); SODIUM 142 mmol/L (135-144)
[2018-10-17 05:36] LABS: POSITIVE DIFF @See below
[2018-10-17] MEDS: FUROSEMIDE 20 MG INJ IV (05:44)
[2018-10-17] MEDS: POTASSIUM CHLORIDE 50 ML IVPB (05:44)
[2018-10-17] MEDS: FENTAnyl (DRIP) 1000 mcg/100mL 100 ML IV (06:28)
[2018-10-17] MEDS ORDERED: DEXTROSE 50% 50 ML SYRINGE IV ×2 (08:30)
[2018-10-17] MEDS ORDERED: DIPHENHYDRAMINE 50 MG INJ IV (08:30)
[2018-10-17] MEDS ORDERED: ONDANSETRON 4 MG INJ IV (08:30)
[2018-10-17] MEDS ORDERED: NITROGLYCERIN 50 MG/D5W (PMX) 250 ML IV (08:30)
[2018-10-17] MEDS ORDERED: NORepinephrine 8MG/250 ML (PMX 250 ML IV (08:30)
[2018-10-17] MEDS ORDERED: morphine 2 MG INJ IV ×2 (08:30)
[2018-10-17] MEDS ORDERED: INSULIN HUMAN REGULAR 100 UNIT in SOD CHLORIDE 0.9% 99 ML IV (08:30)
[2018-10-17] MEDS: FAMOTIDINE 20 MG INJ IV ×2 (08:31→19:50)
[2018-10-17] MEDS ORDERED: PHENYLephrine 20MG IN 250 ML 250 ML IV (09:00)
[2018-10-17 09:01] LABS: AADO2 Arterial 173.2 mmHg (7.0-24.0); Arterial Base Excess -0.6 mmol/L (-3.0-3); Arterial Blood Gas Oxygen Sat 95.2 mmHG (95.0-98.0); Arterial COHb 0.3 % (0.0-3.0); Arterial Fraction of Oxyhgb 94.4 % (93.0-99.0); Arterial HCO3 22.1 mmol/L (22.0-26.0); Arterial MetHb 0.5 % (0.0-1.5); Arterial pCO2 28.6 mmhg (35-45); MODE VENT - AC; Site A-Line
[2018-10-17] MEDS: ASPIRIN 325 MG TAB PO (09:12)
[2018-10-17] MEDS: CLOPIDOGREL 75 MG TAB PO (09:12)
[2018-10-17] MEDS: ENOXAPARIN 40 MG/0.4 ML SYG SC (13:13)
[2018-10-17] MEDS ORDERED: ZOSYN XX (14:00)
[2018-10-17] MEDS ORDERED: FUROSEMIDE (10 MG/ML) IV SYG IV (14:00)
[2018-10-17] MEDS ORDERED: VANCOMYCIN IV PER PHARMACY XX (14:00)
[2018-10-17] MEDS: FUROSEMIDE 40 MG INJ IV (14:28)
[2018-10-17] MEDS: PIPER-TAZO 3.375 GM IV (PMX) 100 ML IVPB ×2 (14:28→21:47)
[2018-10-17] MEDS: MIDAZOLAM 50 MG in DEXTROSE 5% 40 ML IV (15:53)
[2018-10-17] MEDS: VANCOMYCIN HCL 2 GM in SOD CHLORIDE 0.9% 500 ML IVPB (16:07)
[2018-10-17] MEDS: ATORVASTATIN 80 MG TAB NGT (21:17)
[2018-10-18] MEDS: ACCU-CHEK XX ×24 (00:02→23:03)
[2018-10-18] MEDS: INSULIN HUMAN REGULAR 100 UNIT in SOD CHLORIDE 0.9% 99 ML IV (00:04)
[2018-10-18 05:01] LABS: AADO2 Mixed Venous 202.7 mmHg; MODE VENT - AC; MetHgb Mixed Venous 0.4 %; Mixed Venous COHb 0.3 %; Mixed Venous Fraction OxyHgb 68.1 %; Mixed Venous Oxygen Sat 68.6 mmHG (65.0-75.0); Mixed Venous Total Hemglobin 9.6 g/dl; Sample Type BLMV; Site PUL ART LINE
[2018-10-18] MEDS: MIDAZOLAM 50 MG in DEXTROSE 5% 40 ML IV (05:28)
[2018-10-18 05:31] LABS: ADD MAN DIFF? NO
[2018-10-18 05:34] LABS: BASOPHILS % 0.3 % (0.0-2.0); EOSINOPHILS # 0.2 10^3/ul (0.0-0.5); EOSINOPHILS % 1.9 % (0.0-7.0); HEMATOCRIT 24.7 % (37.0-47.0); HEMOGLOBIN 7.9 g/dl (12.0-16.0); LYMPHOCYTES # 1.9 10^3/ul (0.8-2.9); LYMPHOCYTES % 17.4 % (15.0-51.0); MEAN CORPUSCULAR VOLUME 87.6 fl (82.0-101.0); MEAN PLATELET VOLUME 10.8 fl (7.4-10.4); MONOCYTES % 9.4 % (0.0-11.0); NEUTROPHIL # 7.6 10^3/ul (1.6-7.5); NUCLEATED RED BLOOD CELLS # 0.1 10^3/ul (0.0-0.0); NUCLEATED RED BLOOD CELLS% 0.6 /100WBC (0.0-0.0); PLATELET COUNT 110 10^3/UL (140-415); RED BLOOD COUNT 2.82 10^6/ul (4.20-5.40); RED CELL DISTRIBUTION WIDTH 19.7 % (11.5-14.5)
[2018-10-18] MEDS: PIPER-TAZO 3.375 GM IV (PMX) 100 ML IVPB ×3 (05:39→22:03)
[2018-10-18 06:19] LABS: ANION GAP 4 (5-13); BLOOD UREA NITROGEN 15 mg/dl (7-20); CALCIUM 8.1 mg/dl (8.4-10.2); CARBON DIOXIDE 29 mmol/L (21-31); CHLORIDE 106 mmol/L (97-110); CREATININE 0.82 mg/dl (0.44-1.00); Estimated GFR > 60 mL/min (>60); GLUCOSE 124 mg/dl (70-220); MAGNESIUM 2.1 mg/dl (1.7-2.5); PHOSPHORUS 2.7 mg/dl (2.5-4.9); POTASSIUM 3.7 mmol/L (3.5-5.1); SODIUM 139 mmol/L (135-144)
[2018-10-18 07:40] LABS: AADO2 Arterial 163.9 mmHg (7.0-24.0); Arterial Base Excess 3.2 mmol/L (-3.0-3); Arterial Blood Gas Oxygen Sat 95.2 mmHG (95.0-98.0); Arterial COHb 0.3 % (0.0-3.0); Arterial Fraction of Oxyhgb 94.7 % (93.0-99.0); Arterial HCO3 26.8 mmol/L (22.0-26.0); Arterial MetHb 0.2 % (0.0-1.5); MODE VENT - AC; Site A-Line
[2018-10-18] MEDS: VANCOMYCIN 1 GM 250 ML IVPB ×2 (08:19→19:55)
[2018-10-18] MEDS: POTASSIUM CHLORIDE 50 ML IVPB ×3 (08:20→10:31)
[2018-10-18] MEDS: ASCORBIC ACID 500 MG TAB NGT ×2 (08:31→21:02)
[2018-10-18] MEDS: ASPIRIN 325 MG TAB PO (08:31)
[2018-10-18] MEDS: FAMOTIDINE 20 MG INJ IV ×2 (08:31→19:54)
[2018-10-18] MEDS: CLOPIDOGREL 75 MG TAB PO (08:31)
[2018-10-18] MEDS: ENOXAPARIN 40 MG/0.4 ML SYG SC (08:32)
[2018-10-18] MEDS: BUMETANIDE 6 MG in DEXTROSE 5% 36 ML IV (09:23)
[2018-10-18] MEDS: METOPROLOL 25 MG TAB GTB ×2 (11:05→21:03)
[2018-10-18] MEDS: SOD FERRIC GLUC COMPLX 125 MG in SOD CHLORIDE 0.9% 100 ML IVPB (12:52)
[2018-10-18] MEDS: FENTAnyl (DRIP) 1000 mcg/100mL 100 ML IV (13:35)
[2018-10-18] MEDS: HYDROmorphONE 0.5 MG/0.5 ML SYG IV (13:44)
[2018-10-18] MEDS: POTASSIUM CHLORIDE 40 MEQ, CALCIUM CHLORIDE 10% 1 GM in DEXTROSE 5%-0.225% NACL 1,000 ML IV (15:23)
[2018-10-18 17:38] LABS: ALANINE AMINOTRANSFERASE 30 IU/L (13-69); ALBUMIN 2.5 g/dl (3.3-4.9); ALBUMIN/GLOBULIN RATIO 0.92; ALKALINE PHOSPHATASE 95 IU/L (42-121); ANION GAP 6 (5-13); ASPARTATE AMINO TRANSFERASE 35 IU/L (15-46); BILIRUBIN,INDIRECT 0.6 mg/dl (0-1.1); BILIRUBIN,TOTAL 0.6 mg/dl (0.2-1.3); BLOOD UREA NITROGEN 15 mg/dl (7-20); CALCIUM 8.5 mg/dl (8.4-10.2); CARBON DIOXIDE 33 mmol/L (21-31); CHLORIDE 99 mmol/L (97-110); CREATININE 0.88 mg/dl (0.44-1.00); Estimated GFR > 60 mL/min (>60); GLUCOSE 254 mg/dl (70-220); MAGNESIUM 1.9 mg/dl (1.7-2.5); POTASSIUM 4.5 mmol/L (3.5-5.1); SODIUM 138 mmol/L (135-144); TOTAL PROTEIN 5.2 g/dl (6.1-8.1)
[2018-10-18] MEDS: MAGNESIUM SULFATE 1 GM/D5W 100 ML IVPB ×2 (18:21→19:28)
[2018-10-18] MEDS: ATORVASTATIN 80 MG TAB NGT (21:02)
[2018-10-19] MEDS: MIDAZOLAM 50 MG in DEXTROSE 5% 40 ML IV (00:28)
[2018-10-19] MEDS: ACCU-CHEK XX ×24 (01:00→23:23)
[2018-10-19 03:09] LABS: ADD MAN DIFF? NO
[2018-10-19 03:15] LABS: BASOPHILS % 0.4 % (0.0-2.0); EOSINOPHILS # 0.3 10^3/ul (0.0-0.5); EOSINOPHILS % 2.5 % (0.0-7.0); HEMATOCRIT 23.8 % (37.0-47.0); HEMOGLOBIN 7.6 g/dl (12.0-16.0); LYMPHOCYTES # 1.5 10^3/ul (0.8-2.9); MEAN CORPUSCULAR HEMOGLOBIN 28.4 pg (29.0-33.0); MEAN CORPUSCULAR HGB CONC 31.9 g/dl (32.0-37.0); MEAN CORPUSCULAR VOLUME 88.8 fl (82.0-101.0); MEAN PLATELET VOLUME 10.6 fl (7.4-10.4); MONOCYTE # 1.1 10^3/ul (0.3-0.9); MONOCYTES % 10.4 % (0.0-11.0); NEUTROPHIL # 7.5 10^3/ul (1.6-7.5); NEUTROPHILS % 70.5 % (39.0-77.0); NUCLEATED RED BLOOD CELLS # 0.1 10^3/ul (0.0-0.0); NUCLEATED RED BLOOD CELLS% 0.5 /100WBC (0.0-0.0); PLATELET COUNT 141 10^3/UL (140-415); RED BLOOD COUNT 2.68 10^6/ul (4.20-5.40)
[2018-10-19 03:15] LABS: WHITE BLOOD COUNT 10.6 10^3/ul (4.8-10.8)
[2018-10-19 03:39] LABS: ANION GAP 6 (5-13); BLOOD UREA NITROGEN 17 mg/dl (7-20); CALCIUM 7.9 mg/dl (8.4-10.2); CARBON DIOXIDE 33 mmol/L (21-31); CHLORIDE 101 mmol/L (97-110); CREATININE 0.81 mg/dl (0.44-1.00); Estimated GFR > 60 mL/min (>60); GLUCOSE 122 mg/dl (70-220); MAGNESIUM 2.5 mg/dl (1.7-2.5); PHOSPHORUS 3.1 mg/dl (2.5-4.9); POTASSIUM 3.4 mmol/L (3.5-5.1); SODIUM 140 mmol/L (135-144)
[2018-10-19] MEDS: POTASSIUM CHLORIDE 50 ML IVPB ×6 (03:47→23:26)
[2018-10-19] MEDS: POTASSIUM CHLORIDE 40 MEQ, CALCIUM CHLORIDE 10% 1 GM in DEXTROSE 5%-0.225% NACL 1,000 ML IV (03:51)
[2018-10-19] MEDS: PIPER-TAZO 3.375 GM IV (PMX) 100 ML IVPB ×3 (05:28→22:07)
[2018-10-19 08:36] LABS: POTASSIUM 3.8 mmol/L (3.5-5.1)
[2018-10-19 08:44] LABS: VANCOMYCIN,TROUGH 12.8 ug/ml (10.0-20.0)
[2018-10-19] MEDS: ASCORBIC ACID 500 MG TAB NGT ×2 (08:58→21:00)
[2018-10-19] MEDS: CLOPIDOGREL 75 MG TAB PO (08:58)
[2018-10-19] MEDS: ASPIRIN 81 MG TAB GTB (08:58)
[2018-10-19] MEDS: METOPROLOL 25 MG TAB GTB ×2 (08:58→21:00)
[2018-10-19] MEDS: ENOXAPARIN 40 MG/0.4 ML SYG SC (09:02)
[2018-10-19] MEDS: FAMOTIDINE 20 MG INJ IV ×2 (09:10→20:04)
[2018-10-19] MEDS: VANCOMYCIN 1 GM 250 ML IVPB ×2 (09:16→20:04)
[2018-10-19] MEDS: INSULIN HUMAN REGULAR 100 UNIT in SOD CHLORIDE 0.9% 99 ML IV (13:25)
[2018-10-19 13:39] LABS: AADO2 Arterial 154.6 mmHg (7.0-24.0); Arterial Base Excess 7.6 mmol/L (-3.0-3); Arterial Blood Gas Oxygen Sat 95.9 mmHG (95.0-98.0); Arterial COHb 0.3 % (0.0-3.0); Arterial Fraction of Oxyhgb 95.3 % (93.0-99.0); Arterial HCO3 31.4 mmol/L (22.0-26.0); Arterial MetHb 0.3 % (0.0-1.5); Arterial pCO2 41.3 mmhg (35-45); Blood Gas PS 10; MODE VENT - CPAP; Site A-Line
[2018-10-19] MEDS: SOD FERRIC GLUC COMPLX 125 MG in SOD CHLORIDE 0.9% 100 ML IVPB (13:46)
[2018-10-19] MEDS: morphine 2 MG INJ IV (15:19)
[2018-10-19] MEDS: ONDANSETRON 4 MG INJ IV (19:57)
[2018-10-19] MEDS: OXYCODONE/ACETAMINOPHEN (5/325) TAB PO (20:36)
[2018-10-19 20:44] LABS: MAGNESIUM 2.4 mg/dl (1.7-2.5)
[2018-10-19 20:44] LABS: POTASSIUM 3.6 mmol/L (3.5-5.1)
[2018-10-19] MEDS: ATORVASTATIN 80 MG TAB NGT (21:00)
[2018-10-20] MEDS: ACCU-CHEK XX ×13 (00:18→10:45)
[2018-10-20] MEDS: POTASSIUM CHLORIDE 40 MEQ, CALCIUM CHLORIDE 10% 1 GM in DEXTROSE 5%-0.225% NACL 1,000 ML IV ×2 (03:53→20:38)
[2018-10-20] MEDS: OXYCODONE/ACETAMINOPHEN (5/325) TAB PO (03:53)
[2018-10-20 04:39] LABS: AADO2 Arterial 84.6 mmHg (7.0-24.0); Arterial Base Excess 0.5 mmol/L (-3.0-3); Arterial Blood Gas Oxygen Sat 97.3 mmHG (95.0-98.0); Arterial COHb 0.3 % (0.0-3.0); Arterial Fraction of Oxyhgb 96.8 % (93.0-99.0); Arterial HCO3 25.4 mmol/L (22.0-26.0); Arterial MetHb 0.2 % (0.0-1.5); MODE NASAL CANNULA; Site A-Line
[2018-10-20 04:44] LABS: ADD MAN DIFF? NO
[2018-10-20 04:47] LABS: WHITE BLOOD COUNT 10.5 10^3/ul (4.8-10.8)
[2018-10-20 04:47] LABS: BASOPHIL # 0.1 10^3/ul (0.0-0.1); BASOPHILS % 0.5 % (0.0-2.0); EOSINOPHILS # 0.3 10^3/ul (0.0-0.5); HEMATOCRIT 25.1 % (37.0-47.0); HEMOGLOBIN 7.8 g/dl (12.0-16.0); LYMPHOCYTES # 1.4 10^3/ul (0.8-2.9); LYMPHOCYTES % 13.2 % (15.0-51.0); MEAN CORPUSCULAR HEMOGLOBIN 28.5 pg (29.0-33.0); MEAN CORPUSCULAR HGB CONC 31.1 g/dl (32.0-37.0); MEAN CORPUSCULAR VOLUME 91.6 fl (82.0-101.0); MEAN PLATELET VOLUME 10.2 fl (7.4-10.4); MONOCYTE # 1.2 10^3/ul (0.3-0.9); MONOCYTES % 11.4 % (0.0-11.0); NEUTROPHIL # 7.3 10^3/ul (1.6-7.5); NEUTROPHILS % 69.3 % (39.0-77.0); PLATELET COUNT 201 10^3/UL (140-415); RED BLOOD COUNT 2.74 10^6/ul (4.20-5.40); RED CELL DISTRIBUTION WIDTH 19.2 % (11.5-14.5)
[2018-10-20 05:13] LABS: ANION GAP 4 (5-13); BLOOD UREA NITROGEN 12 mg/dl (7-20); CALCIUM 8.3 mg/dl (8.4-10.2); CARBON DIOXIDE 31 mmol/L (21-31); CHLORIDE 106 mmol/L (97-110); CREATININE 0.79 mg/dl (0.44-1.00); Estimated GFR > 60 mL/min (>60); GLUCOSE 101 mg/dl (70-220); MAGNESIUM 2.3 mg/dl (1.7-2.5); PHOSPHORUS 3.4 mg/dl (2.5-4.9); POTASSIUM 4.2 mmol/L (3.5-5.1); SODIUM 141 mmol/L (135-144)
[2018-10-20] MEDS: PIPER-TAZO 3.375 GM IV (PMX) 100 ML IVPB ×3 (06:28→22:51)
[2018-10-20] MEDS: ASPIRIN 81 MG TAB GTB (09:01)
[2018-10-20] MEDS: VANCOMYCIN 1 GM 250 ML IVPB ×2 (09:01→20:30)
[2018-10-20] MEDS: CLOPIDOGREL 75 MG TAB PO (09:01)
[2018-10-20] MEDS: ASCORBIC ACID 500 MG TAB NGT ×2 (09:02→20:29)
[2018-10-20] MEDS: METOPROLOL 25 MG TAB GTB ×2 (09:02→20:29)
[2018-10-20] MEDS: ENOXAPARIN 40 MG/0.4 ML SYG SC (09:05)
[2018-10-20] MEDS: FAMOTIDINE 20 MG INJ IV ×2 (09:10→20:38)
[2018-10-20] MEDS: FUROSEMIDE 40 MG INJ IV (11:09)
[2018-10-20] MEDS: LIDOCAINE 1% (MPF) 5 ML VIAL SC (12:00)
[2018-10-20] MEDS: POTASSIUM CHLORIDE 50 ML IVPB ×2 (12:02→12:57)
[2018-10-20] MEDS: SOD FERRIC GLUC COMPLX 125 MG in SOD CHLORIDE 0.9% 100 ML IVPB (12:56)
[2018-10-20] MEDS ORDERED: DO NOT FORGET TO ENTER HYPOGLYCEMIC PROTOCOL XX (13:30)
[2018-10-20] MEDS ORDERED: GLUCAGON 1 MG INJ IM (14:00)
[2018-10-20] MEDS ORDERED: GLUCOSE GEL 15 GRAM TUBE PO ×2 (14:00)
[2018-10-20] MEDS ORDERED: GLUCOSE GEL 15 GRAM TUBE BUCCAL (14:00)
[2018-10-20] MEDS: ACETAMINOPHEN 325 MG TAB PO ×2 (14:23→22:57)
[2018-10-20] MEDS: Insulin NOVOLOG SS MILD Algorithm (SS with meals and bedtime) SC ×2 (17:05→21:00)
[2018-10-20] MEDS: ATORVASTATIN 80 MG TAB NGT (20:29)
[2018-10-21] MEDS: morphine 2 MG INJ IV (01:24)
[2018-10-21] MEDS: ACCUCHECK AT 2AM (Patients on SS coverage) XX (03:00)
[2018-10-21] MEDS ORDERED: ACCU-CHEK XX (03:00)
[2018-10-21 05:24] LABS: ADD MAN DIFF? NO
[2018-10-21 05:26] LABS: BASOPHILS % 0.4 % (0.0-2.0); EOSINOPHILS # 0.3 10^3/ul (0.0-0.5); EOSINOPHILS % 2.9 % (0.0-7.0); HEMATOCRIT 26.7 % (37.0-47.0); HEMOGLOBIN 8.4 g/dl (12.0-16.0); LYMPHOCYTES # 1.6 10^3/ul (0.8-2.9); LYMPHOCYTES % 14.5 % (15.0-51.0); MEAN CORPUSCULAR HEMOGLOBIN 28.8 pg (29.0-33.0); MEAN CORPUSCULAR HGB CONC 31.5 g/dl (32.0-37.0); MEAN CORPUSCULAR VOLUME 91.4 fl (82.0-101.0); MEAN PLATELET VOLUME 9.7 fl (7.4-10.4); MONOCYTE # 1.2 10^3/ul (0.3-0.9); MONOCYTES % 11.3 % (0.0-11.0); NEUTROPHIL # 7.1 10^3/ul (1.6-7.5); PLATELET COUNT 286 10^3/UL (140-415); RED BLOOD COUNT 2.92 10^6/ul (4.20-5.40); RED CELL DISTRIBUTION WIDTH 19.3 % (11.5-14.5)
[2018-10-21 05:26] LABS: WHITE BLOOD COUNT 10.7 10^3/ul (4.8-10.8)
[2018-10-21 05:47] LABS: MAGNESIUM 2.1 mg/dl (1.7-2.5)
[2018-10-21 05:50] LABS: ANION GAP 5 (5-13); BLOOD UREA NITROGEN 9 mg/dl (7-20); CARBON DIOXIDE 33 mmol/L (21-31); CHLORIDE 103 mmol/L (97-110); CREATININE 0.79 mg/dl (0.44-1.00); Estimated GFR > 60 mL/min (>60); GLUCOSE 111 mg/dl (70-220); POTASSIUM 4.1 mmol/L (3.5-5.1); SODIUM 141 mmol/L (135-144)
[2018-10-21] MEDS: PIPER-TAZO 3.375 GM IV (PMX) 100 ML IVPB ×3 (06:50→22:18)
[2018-10-21] MEDS: Insulin NOVOLOG SS MILD Algorithm (SS with meals and bedtime) SC ×4 (07:05→21:00)
[2018-10-21] MEDS: POTASSIUM CHLORIDE 50 ML IVPB ×2 (07:29→10:58)
[2018-10-21] MEDS: CLOPIDOGREL 75 MG TAB PO (09:33)
[2018-10-21] MEDS: FAMOTIDINE 20 MG INJ IV ×2 (09:33→20:16)
[2018-10-21] MEDS: ASPIRIN 81 MG TAB GTB (09:34)
[2018-10-21] MEDS: METOPROLOL 25 MG TAB GTB (09:34)
[2018-10-21] MEDS: ASCORBIC ACID 500 MG TAB NGT ×2 (09:34→20:16)
[2018-10-21] MEDS: ENOXAPARIN 40 MG/0.4 ML SYG SC (09:41)
[2018-10-21] MEDS: ONDANSETRON 4 MG INJ IV (10:51)
[2018-10-21] MEDS: VANCOMYCIN 1 GM 250 ML IVPB ×2 (10:58→20:19)
[2018-10-21] MEDS: LIDOCAINE 1% (MPF) 5 ML VIAL SC (11:03)
[2018-10-21] MEDS: POTASSIUM CHLORIDE 40 MEQ, CALCIUM CHLORIDE 10% 1 GM in DEXTROSE 5%-0.225% NACL 1,000 ML IV ×2 (12:03→22:17)
[2018-10-21] MEDS: SOD FERRIC GLUC COMPLX 125 MG in SOD CHLORIDE 0.9% 100 ML IVPB (13:48)
[2018-10-21] MEDS: ACETAMINOPHEN 325 MG TAB PO (15:12)
[2018-10-21] MEDS: ATORVASTATIN 80 MG TAB NGT (20:16)
[2018-10-21] MEDS: METOPROLOL 50 MG TAB GTB (20:17)
[2018-10-22] MEDS: traZODone 50 MG TAB PO (01:29)
[2018-10-22] MEDS: ACCUCHECK AT 2AM (Patients on SS coverage) XX (02:00)
[2018-10-22] MEDS: morphine 2 MG INJ IV ×2 (06:20→22:27)
[2018-10-22] MEDS: PIPER-TAZO 3.375 GM IV (PMX) 100 ML IVPB ×3 (06:22→22:32)
[2018-10-22] MEDS: Insulin NOVOLOG SS MILD Algorithm (SS with meals and bedtime) SC ×4 (08:26→20:44)
[2018-10-22] MEDS: FAMOTIDINE 20 MG INJ IV ×2 (08:56→20:41)
[2018-10-22] MEDS: VANCOMYCIN 1 GM 250 ML IVPB (08:57)
[2018-10-22] MEDS: ASPIRIN 81 MG TAB GTB (08:57)
[2018-10-22 08:58] LABS: ADD MAN DIFF? NO
[2018-10-22] MEDS: CLOPIDOGREL 75 MG TAB PO (08:58)
[2018-10-22] MEDS: ASCORBIC ACID 500 MG TAB NGT ×2 (08:58→20:42)
[2018-10-22] MEDS: METOPROLOL 50 MG TAB GTB ×3 (08:59→20:42)
[2018-10-22] MEDS: ENOXAPARIN 40 MG/0.4 ML SYG SC (08:59)
[2018-10-22 09:00] LABS: WHITE BLOOD COUNT 10.1 10^3/ul (4.8-10.8)
[2018-10-22 09:00] LABS: BASOPHIL # 0.1 10^3/ul (0.0-0.1); BASOPHILS % 0.7 % (0.0-2.0); EOSINOPHILS # 0.3 10^3/ul (0.0-0.5); EOSINOPHILS % 2.9 % (0.0-7.0); HEMATOCRIT 26.4 % (37.0-47.0); HEMOGLOBIN 8.2 g/dl (12.0-16.0); LYMPHOCYTES # 1.3 10^3/ul (0.8-2.9); LYMPHOCYTES % 13.1 % (15.0-51.0); MEAN CORPUSCULAR HEMOGLOBIN 28.8 pg (29.0-33.0); MEAN CORPUSCULAR HGB CONC 31.1 g/dl (32.0-37.0); MEAN CORPUSCULAR VOLUME 92.6 fl (82.0-101.0); MEAN PLATELET VOLUME 9.6 fl (7.4-10.4); MONOCYTES % 9.5 % (0.0-11.0); NEUTROPHIL # 7.1 10^3/ul (1.6-7.5); NEUTROPHILS % 70.2 % (39.0-77.0); NUCLEATED RED BLOOD CELLS% 0.2 /100WBC (0.0-0.0); PLATELET COUNT 372 10^3/UL (140-415); RED BLOOD COUNT 2.85 10^6/ul (4.20-5.40); RED CELL DISTRIBUTION WIDTH 19.3 % (11.5-14.5)
[2018-10-22] MEDS: ACETAMINOPHEN 325 MG TAB PO (09:05)
[2018-10-22 09:07] LABS: ANION GAP 5 (5-13); BLOOD UREA NITROGEN 7 mg/dl (7-20); CALCIUM 9.1 mg/dl (8.4-10.2); CARBON DIOXIDE 31 mmol/L (21-31); CHLORIDE 104 mmol/L (97-110); CREATININE 0.64 mg/dl (0.44-1.00); Estimated GFR > 60 mL/min (>60); GLUCOSE 111 mg/dl (70-220); MAGNESIUM 2.2 mg/dl (1.7-2.5); POTASSIUM 4.1 mmol/L (3.5-5.1); SODIUM 140 mmol/L (135-144)
[2018-10-22] MEDS: SOD FERRIC GLUC COMPLX 125 MG in SOD CHLORIDE 0.9% 100 ML IVPB (13:49)
[2018-10-22] MEDS: ATORVASTATIN 80 MG TAB NGT (20:42)
[2018-10-23] MEDS: ACCUCHECK AT 2AM (Patients on SS coverage) XX (02:00)
[2018-10-23] MEDS: PIPER-TAZO 3.375 GM IV (PMX) 100 ML IVPB ×3 (05:32→21:48)
[2018-10-23] MEDS: Insulin NOVOLOG SS MILD Algorithm (SS with meals and bedtime) SC ×4 (07:05→20:34)
[2018-10-23] MEDS: FAMOTIDINE 20 MG INJ IV (07:49)
[2018-10-23] MEDS: ASPIRIN 81 MG TAB GTB (08:08)
[2018-10-23] MEDS: METOPROLOL 50 MG TAB GTB ×3 (08:08→20:32)
[2018-10-23] MEDS: CLOPIDOGREL 75 MG TAB PO (08:08)
[2018-10-23] MEDS: ASCORBIC ACID 500 MG TAB NGT ×2 (08:08→20:31)
[2018-10-23] MEDS: ENOXAPARIN 40 MG/0.4 ML SYG SC (08:09)
[2018-10-23 08:20] LABS: ADD MAN DIFF? NO
[2018-10-23 08:30] LABS: WHITE BLOOD COUNT 12.1 10^3/ul (4.8-10.8)
[2018-10-23 08:30] LABS: BASOPHIL # 0.1 10^3/ul (0.0-0.1); BASOPHILS % 0.4 % (0.0-2.0); EOSINOPHILS # 0.3 10^3/ul (0.0-0.5); EOSINOPHILS % 2.2 % (0.0-7.0); HEMATOCRIT 27.3 % (37.0-47.0); HEMOGLOBIN 8.4 g/dl (12.0-16.0); LYMPHOCYTES # 1.7 10^3/ul (0.8-2.9); LYMPHOCYTES % 13.7 % (15.0-51.0); MEAN CORPUSCULAR HEMOGLOBIN 28.2 pg (29.0-33.0); MEAN CORPUSCULAR HGB CONC 30.8 g/dl (32.0-37.0); MEAN CORPUSCULAR VOLUME 91.6 fl (82.0-101.0); MEAN PLATELET VOLUME 9.3 fl (7.4-10.4); MONOCYTES % 7.9 % (0.0-11.0); NEUTROPHIL # 8.8 10^3/ul (1.6-7.5); NEUTROPHILS % 72.8 % (39.0-77.0); PLATELET COUNT 432 10^3/UL (140-415); RED BLOOD COUNT 2.98 10^6/ul (4.20-5.40); RED CELL DISTRIBUTION WIDTH 19.9 % (11.5-14.5)
[2018-10-23 08:45] LABS: ALANINE AMINOTRANSFERASE 33 IU/L (13-69); ALBUMIN 2.8 g/dl (3.3-4.9); ALKALINE PHOSPHATASE 114 IU/L (42-121); ANION GAP 9 (5-13); ASPARTATE AMINO TRANSFERASE 37 IU/L (15-46); BILIRUBIN,INDIRECT 0.8 mg/dl (0-1.1); BILIRUBIN,TOTAL 0.8 mg/dl (0.2-1.3); BLOOD UREA NITROGEN 9 mg/dl (7-20); CALCIUM 8.6 mg/dl (8.4-10.2); CARBON DIOXIDE 29 mmol/L (21-31); CHLORIDE 103 mmol/L (97-110); CREATININE 0.65 mg/dl (0.44-1.00); Estimated GFR > 60 mL/min (>60); GLUCOSE 88 mg/dl (70-220); POTASSIUM 3.8 mmol/L (3.5-5.1); SODIUM 141 mmol/L (135-144); TOTAL PROTEIN 5.9 g/dl (6.1-8.1)
[2018-10-23 09:48] LABS: MAGNESIUM 2.2 mg/dl (1.7-2.5)
[2018-10-23] MEDS ORDERED: morphine LIQ (10 MG/5 ML) CUP PO (11:30)
[2018-10-23] MEDS: FUROSEMIDE 20 MG INJ IV (14:53)
[2018-10-23] MEDS: OXYCODONE/ACETAMINOPHEN (5/325) TAB PO (20:31)
[2018-10-23] MEDS: ATORVASTATIN 80 MG TAB NGT (20:31)
[2018-10-24] MEDS: ACCUCHECK AT 2AM (Patients on SS coverage) XX (01:58)
[2018-10-24] MEDS: PIPER-TAZO 3.375 GM IV (PMX) 100 ML IVPB ×3 (05:13→22:59)
[2018-10-24 05:28] LABS: ADD MAN DIFF? NO
[2018-10-24 05:41] LABS: WHITE BLOOD COUNT 12.6 10^3/ul (4.8-10.8)
[2018-10-24 05:41] LABS: BASOPHIL # 0.1 10^3/ul (0.0-0.1); BASOPHILS % 0.6 % (0.0-2.0); EOSINOPHILS # 0.4 10^3/ul (0.0-0.5); EOSINOPHILS % 2.9 % (0.0-7.0); HEMATOCRIT 28.3 % (37.0-47.0); HEMOGLOBIN 8.8 g/dl (12.0-16.0); LYMPHOCYTES % 15.9 % (15.0-51.0); MEAN CORPUSCULAR HEMOGLOBIN 28.4 pg (29.0-33.0); MEAN CORPUSCULAR HGB CONC 31.1 g/dl (32.0-37.0); MEAN CORPUSCULAR VOLUME 91.3 fl (82.0-101.0); MEAN PLATELET VOLUME 9.2 fl (7.4-10.4); MONOCYTE # 1.1 10^3/ul (0.3-0.9); MONOCYTES % 8.8 % (0.0-11.0); NEUTROPHIL # 8.7 10^3/ul (1.6-7.5); NEUTROPHILS % 68.6 % (39.0-77.0); PLATELET COUNT 512 10^3/UL (140-415); RED CELL DISTRIBUTION WIDTH 19.7 % (11.5-14.5)
[2018-10-24 05:56] LABS: ANION GAP 8 (5-13); BLOOD UREA NITROGEN 12 mg/dl (7-20); CALCIUM 8.5 mg/dl (8.4-10.2); CARBON DIOXIDE 29 mmol/L (21-31); CHLORIDE 103 mmol/L (97-110); CREATININE 0.64 mg/dl (0.44-1.00); Estimated GFR > 60 mL/min (>60); GLUCOSE 79 mg/dl (70-220); POTASSIUM 3.9 mmol/L (3.5-5.1); SODIUM 140 mmol/L (135-144)
[2018-10-24] MEDS: Insulin NOVOLOG SS MILD Algorithm (SS with meals and bedtime) SC (06:51)
[2018-10-24] MEDS: ASCORBIC ACID 500 MG TAB NGT ×2 (08:23→20:47)
[2018-10-24] MEDS: CLOPIDOGREL 75 MG TAB PO (08:23)
[2018-10-24] MEDS: ASPIRIN 81 MG TAB GTB (08:23)
[2018-10-24] MEDS: METOPROLOL 50 MG TAB GTB ×3 (08:24→20:47)
[2018-10-24] MEDS: ENOXAPARIN 40 MG/0.4 ML SYG SC (08:26)
[2018-10-24] MEDS: ACETAMINOPHEN 325 MG TAB PO (10:05)
[2018-10-24] MEDS: ATORVASTATIN 80 MG TAB NGT (20:46)
[2018-10-24] MEDS: traZODone 50 MG TAB PO (23:10)
[2018-10-25] MEDS: PIPER-TAZO 3.375 GM IV (PMX) 100 ML IVPB ×3 (05:39→21:23)
[2018-10-25] MEDS: ASPIRIN 81 MG TAB GTB (09:17)
[2018-10-25] MEDS: CLOPIDOGREL 75 MG TAB PO (09:18)
[2018-10-25] MEDS: ASCORBIC ACID 500 MG TAB NGT ×2 (09:18→21:26)
[2018-10-25] MEDS: METOPROLOL (XL) 100 MG TAB PO (09:22)
[2018-10-25] MEDS: ENOXAPARIN 40 MG/0.4 ML SYG SC (09:25)
[2018-10-25 17:24] LABS: ADD UMIC NO; UR ASCORBIC ACID 20 mg/dL (NEGATIVE); UR BILIRUBIN (Dip) NEGATIVE (NEGATIVE); UR BLOOD (Dip) NEGATIVE (NEGATIVE); UR CLARITY SLIGHTLY CLOUDY (CLEAR); UR COLOR YELLOW (YELLOW); UR GLUCOSE (Dip) NEGATIVE (NEGATIVE); UR KETONES (Dip) 1+ mg/dL (NEGATIVE); UR LEUKOCYTE ESTERASE (Dip) NEGATIVE Leu/ul (NEGATIVE); UR NITRITE (Dip) NEGATIVE (NEGATIVE); UR RBC 2 /HPF (0-5); UR SPECIFIC GRAVITY (Dip) 1.012 (1.003-1.030); UR SQUAMOUS EPITHELIAL CELL MODERATE /HPF (FEW); UR TOTAL PROTEIN (Dip) NEGATIVE (NEGATIVE); UR UROBILINOGEN (Dip) 2+ mg/dL (NEGATIVE); UR WBC 5 /HPF (0-5)
[2018-10-25] MEDS: ATORVASTATIN 80 MG TAB NGT (21:23)
[2018-10-25] MEDS: traZODone 50 MG TAB PO (22:12)
[2018-10-26] MEDS: PIPER-TAZO 3.375 GM IV (PMX) 100 ML IVPB ×2 (05:37→13:35)
[2018-10-26 05:58] LABS: ADD MAN DIFF? NO
[2018-10-26] MEDS: ACETAMINOPHEN 325 MG TAB PO (06:00)
[2018-10-26 06:05] LABS: BASOPHIL # 0.1 10^3/ul (0.0-0.1); BASOPHILS % 0.5 % (0.0-2.0); EOSINOPHILS # 0.3 10^3/ul (0.0-0.5); EOSINOPHILS % 2.8 % (0.0-7.0); HEMATOCRIT 29.1 % (37.0-47.0); HEMOGLOBIN 9.2 g/dl (12.0-16.0); LYMPHOCYTES # 1.9 10^3/ul (0.8-2.9); LYMPHOCYTES % 16.7 % (15.0-51.0); MEAN CORPUSCULAR HEMOGLOBIN 29.2 pg (29.0-33.0); MEAN CORPUSCULAR HGB CONC 31.6 g/dl (32.0-37.0); MEAN CORPUSCULAR VOLUME 92.4 fl (82.0-101.0); MEAN PLATELET VOLUME 9.2 fl (7.4-10.4); MONOCYTE # 1.1 10^3/ul (0.3-0.9); MONOCYTES % 9.3 % (0.0-11.0); NEUTROPHIL # 7.7 10^3/ul (1.6-7.5); NEUTROPHILS % 68.6 % (39.0-77.0); PLATELET COUNT 597 10^3/UL (140-415); RED BLOOD COUNT 3.15 10^6/ul (4.20-5.40); RED CELL DISTRIBUTION WIDTH 19.9 % (11.5-14.5)
[2018-10-26 06:05] LABS: WHITE BLOOD COUNT 11.3 10^3/ul (4.8-10.8)
[2018-10-26] MEDS: ENOXAPARIN 40 MG/0.4 ML SYG SC (08:22)
[2018-10-26] MEDS: ASPIRIN 81 MG TAB GTB (08:23)
[2018-10-26] MEDS: LOSARTAN 50 MG TAB PO (08:23)
[2018-10-26] MEDS: CLOPIDOGREL 75 MG TAB PO (08:23)
[2018-10-26] MEDS: METOPROLOL (XL) 100 MG TAB PO (08:23)
[2018-10-26] MEDS: ASCORBIC ACID 500 MG TAB NGT (08:24)
== END 2018-10-26 18:30 | DRG 231 ==
LOC: 6WM 10-24 18:28 → E/R 04:42 → ICU 05:25
PROC: 021209W Bypass Coronary Artery, Three Arteries from Aorta with Autologous Venous Tissue, Open Approach (ICD-10-PCS; principal; 2018-10-12 05:30)
PROC: 02703DZ Dilation of Coronary Artery, One Artery with Intraluminal Device, Percutaneous Approach (ICD-10-PCS; 2018-10-12 05:30)
PROC: 02100Z9 Bypass Coronary Artery, One Artery from Left Internal Mammary, Open Approach (ICD-10-PCS; 2018-10-12 05:30)
PROC: 0WCC0ZZ Extirpation of Matter from Mediastinum, Open Approach (ICD-10-PCS; 2018-10-12 05:30)
PROC: 5A02210 Assistance with Cardiac Output using Balloon Pump, Continuous (ICD-10-PCS; 2018-10-12 05:30)
PROC: 02703ZZ Dilation of Coronary Artery, One Artery, Percutaneous Approach (ICD-10-PCS; 2018-10-12 05:30)
PROC: 06BQ4ZZ Excision of Left Saphenous Vein, Percutaneous Endoscopic Approach (ICD-10-PCS; 2018-10-12 05:30)
PROC: 0W3C0ZZ Control Bleeding in Mediastinum, Open Approach (ICD-10-PCS; 2018-10-12 05:30)
PROC: 5A1955Z Respiratory Ventilation, Greater than 96 Consecutive Hours (ICD-10-PCS; 2018-10-12 05:30)
PROC: 5A2204Z Restoration of Cardiac Rhythm, Single (ICD-10-PCS; 2018-10-12 05:30)
PROC: B211YZZ Fluoroscopy of Multiple Coronary Arteries using Other Contrast (ICD-10-PCS; 2018-10-12 05:30)
PROC: 0BH18EZ Insertion of Endotracheal Airway into Trachea, Via Natural or Artificial Opening Endoscopic (ICD-10-PCS; 2018-10-12 05:30)
PROC: 02HV33Z Insertion of Infusion Device into Superior Vena Cava, Percutaneous Approach (ICD-10-PCS; 2018-10-12 05:30)
PROC: 5A1221Z Performance of Cardiac Output, Continuous (ICD-10-PCS; 2018-10-12 05:30)
PROC: 30233N1 Transfusion of Nonautologous Red Blood Cells into Peripheral Vein, Percutaneous Approach (ICD-10-PCS; 2018-10-12 05:30)
PROC: 30233R1 Transfusion of Nonautologous Platelets into Peripheral Vein, Percutaneous Approach (ICD-10-PCS; 2018-10-12 05:30)
PROC: 30233K1 Transfusion of Nonautologous Frozen Plasma into Peripheral Vein, Percutaneous Approach (ICD-10-PCS; 2018-10-12 05:30)
DX: I21.19 ST elevation (STEMI) myocardial infarction involving other coronary artery of inferior wall (principal); J96.01 Acute respiratory failure with hypoxia; I46.2 Cardiac arrest due to underlying cardiac condition; I49.01 Ventricular fibrillation; J69.0 Pneumonitis due to inhalation of food and vomit; I47.2 Ventricular tachycardia; G93.40 Encephalopathy, unspecified; D62 Acute posthemorrhagic anemia; I97.611 Postprocedural hemorrhage of a circulatory system organ or structure following cardiac bypass; Z68.41 Body mass index [BMI] 40.0-44.9, adult; K80.20 Calculus of gallbladder without cholecystitis without obstruction; I25.10 Atherosclerotic heart disease of native coronary artery without angina pectoris; E78.5 Hyperlipidemia, unspecified; E66.9 Obesity, unspecified; I11.0 Hypertensive heart disease with heart failure; I50.9 Heart failure, unspecified; E66.01 Morbid (severe) obesity due to excess calories; E11.9 Type 2 diabetes mellitus without complications
CPT/HCPCS: 31500; 36415; 36430; 36569; 36592; 36600; 71045; 74018; 76937; 80048; 80053; 80202; 81001; 81003; 82040; 82550; 82553; 82803; 82962; 83605; 83735; 84100; 84132; 84484; 85014; 85025; 85049; 85362; 85378; 85384; 85610; 85670; 85730; 86644; 86850; 86900; 86901; 86920; 86945; 87040; 87070; 87081; 87086; 89220; 92526; 92610; 92928; 92950; 93005; 93306; 93312; 93325; 93454; 93880; 94002; 94003; 94770; 96374; 97110; 97116; 97163; 97167; 97530; 97535; 99291-25